=== PATIENT | male | born 1995 | race Caucasian/White ===

== ENCOUNTER 2024-08-26 13:27 | Emergency (ER) | payer BC ==
[2024-08-26 14:08] LABS: Absolute Basophils 0.1 K/uL (0-0.5); Absolute Eosinophils 0.7 K/uL (0-0.5); Absolute Lymphocytes (CBC) 2.2 K/uL (0.7-4.9); Absolute Monocytes 0.5 K/uL (0.1-1.3); Absolute Neutrophil 4.8 K/uL (1.8-8.0); Basophils % 0.7 % (0-1.3); Eosinophils % 8.3 % (0-4.4); Hematocrit 42.6 % (39.6-49.0); Hemoglobin 14.8 g/dL (13.6-17.9); MCH 29.9 pg (27.0-35.0); MCHC 34.7 g/dL (32.0-36.0); MCV 86.2 fL (80-100); MPV 9.6 fL (7.6-11.3); Monocytes % 6.5 % (3.3-12.3); Neutrophils % 58.5 % (41.7-73.7); Nucleated Red Blood Cells % 0.1 % (0-0); Platelets 223 thou/uL (152-406); RBC Red Blood Cell Count 4.94 M/uL (4.33-5.43); Red Cell Distribution Width 12.8 % (12.1-15.2)
[2024-08-26 14:11] LABS: D-Dimer 0.288 FEUug/mL (0-0.500); PT Prothrombin Time 11.6 SECONDS (9.4-12.5); Protime INR 1.04
[2024-08-26 14:27] LABS: ALT/SGPT 46 U/L (16-61); AST/SGOT 22 U/L (15-37); Albumin 3.8 g/dL (3.4-5.0); Albumin/Globulin Ratio 1.1 (1.1-1.8); Alkaline Phosphatase 96 U/L (45-117); Anion Gap 7.5 mEq/L (5.0-15.0); BUN Blood Urea Nitrogen 11 mg/dL (7-18); Bicarbonate 24 mEq/L (21-32); Bilirubin Direct < 0.2 mg/dL (0-0.2); Bilirubin Indirect, Calculated 0.3 mg/dL (0.2-0.8); Bilirubin Total 0.5 mg/dL (0.2-1.0); Globulin 3.6 g/dL (2.3-3.5); Glomerular Filtration Rate 110 ml/min (=/>90); Glucose Level 109 mg/dL (74-106); Lipase 21 U/L (13-75); Magnesium 1.7 mg/dL (1.6-2.4); Potassium 3.5 mEq/L (3.5-5.1); Protein, Total 7.4 g/dL (6.4-8.2); Sodium Level 139 mEq/L (136-145); Troponin High Sensitivity 3.3 pg/mL (<58.9)
--- NOTE | 2024-08-26 14:32 | RAD REPORT ---
EXAMINATION: ONE VIEW CHEST XR CLINICAL INDICATION: Male, 28 years old.CHEST PAIN TECHNIQUE: 1 View, AP supine, X-ray of the chest was performed. [id number]. COMPARISON: No prior exam. FINDINGS: Lungs and pleura: Clear lungs. No effusion. Heart and mediastinum: Normal heart size. Unremarkable mediastinal contours. Osseous structures: No acute abnormality. Tubes/lines: None Other: None. IMPRESSION: No acute intrathoracic abnormality.
--- NOTE | 2024-08-26 16:04 | RAD REPORT ---
Abdomen Exam Limited: 08/26/2024 3:54 PM CLINICAL HISTORY: chest pain STUDY: Limited right upper quadrant ultrasound of abdomen. COMPARISON: None. FINDINGS: Liver: No significant abnormality. Bile ducts: No intrahepatic or extrahepatic biliary dilatation. Common bile duct measures 3 mm. Gallbladder: Normal. IMPRESSION: Unremarkable exam.
[2024-08-26] MEDS ORDERED: KETOROLAC 30 MG/ML INJ ONE (16:48)
--- NOTE | 2024-08-26 17:33 | EDPHYS ---
[facility] Name: Kam Rosenberg Age: 28 yrs Sex: Male : 1995 Arrival Date: 08/26/2024 Time: 13:27 Bed 15 Private MD: ED Physician Lasha Beltran HPI: 08/26 13:40 This 28 yrs old Male presents to ER via Ambulatory with complaints of Chest Pain. cp 13:40 The patient or guardian reports chest pain that is located primarily in the anterior cp chest wall, left. 13:40 The pain radiates to left back. cp 13:40 The chest pain is described as sharp. Duration: The patient or guardian reports a cp single episode, that is still ongoing, onset about 1 hr prior to arrival. pain started while at work. Historical: - Allergies: 13:36 No Known Allergies; aa5 - Home Meds: 13:36 None [Active]; aa5 - PMHx: 13:36 None; aa5 - PSHx: 13:36 None; aa5 - Immunization history:: Adult Immunizations up to date. - Infectious Disease History:: Denies. - Social history:: Smoking status: Reported history of juuling and/or vaping. ROS: 13:45 Constitutional: Negative for body aches, chills, fever, poor PO intake, cp 13:45 Eyes: Negative for injury, pain, redness, and discharge, cp 13:45 ENT: Negative for drainage from ear(s), ear pain, sore throat, difficulty swallowing, difficulty handling secretions, 13:45 Cardiovascular: Positive for chest pain, of the left side of chest, Negative for edema, palpitations, 13:45 Respiratory: Negative for cough, shortness of breath, wheezing, 13:45 Abdomen/GI: Negative for vomiting, diarrhea, constipation, 13:45 Back: Positive for radiated pain, 13:45 Neuro: Negative for altered mental status, dizziness, headache, weakness, 13:45 All other systems are negative, Exam: 13:49 ECG was reviewed by the Attending Physician. cp 13:50 Constitutional: The patient appears in no acute distress, alert, awake, cp non-diaphoretic, non-toxic, well developed, well nourished, uncomfortable, 13:50 Head/Face: Normocephalic, atraumatic. cp 13:50 Eyes: Periorbital structures: appear normal, Conjunctiva: normal, no exudate, no injection, Sclera: no appreciated abnormality, Lids and lashes: appear normal, bilaterally, 13:50 ENT: External ear(s): are unremarkable, Nose: is normal, Mouth: Lips: moist, Oral mucosa: pink and intact, moist, Posterior pharynx: Airway: no evidence of obstruction, patent, 13:50 Neck: ROM/movement: is normal, is supple, without pain, no range of motions limitations, 13:50 Chest/axilla: Inspection: normal, 13:50 Cardiovascular: Rate: normal, Rhythm: regular, Edema: is not appreciated, JVD: is not appreciated, 13:50 Respiratory: the patient does not display signs of respiratory distress, Respirations: normal, no use of accessory muscles, no retractions, labored breathing, is not present, Breath sounds: are clear throughout, no decreased breath sounds, no stridor, no wheezing, 13:50 Abdomen/GI: Inspection: abdomen appears normal, Palpation: abdomen is soft and non-tender, in all quadrants, 13:50 Back: CVA tenderness, is absent, 13:50 Neuro: Orientation: to person, place \T\ time. Mentation: is normal, Motor: moves all fours, strength is normal, 16:47 ECG was reviewed by the Attending Physician. cp Vital Signs: 13:36 BP 129 / 88; Pulse 65; Resp 18 S; Temp 98(TE); Pulse Ox 98% on R/A; aa5 13:55 BP 138 / 84 RA Supine (auto/reg); Pulse 66; ko1 13:57 BP 131 / 78 LA Supine (auto/reg); Pulse 68; ko1 16:56 BP 113 / 79; Pulse 67; Resp 17; Pulse Ox 100% ; ko1 17:30 BP 124 / 72; Pulse 68; Resp 16; Pulse Ox 100% ; ko1 MDM: 13:32 Medical Screening Exam initiated cp 15:00 Differential diagnosis: acute myocardial infarction, acute pericarditis, cholecystitis, cp Cholelithiasis costochondritis, pancreatitis, pleurisy, pneumonia, pneumothorax, pulmonary embolus, stable angina, thoracic aortic disection, unstable angina. 17:31 Data reviewed: vital signs, nurses notes, lab test result(s), EKG, radiologic studies, cp plain films, ultrasound, and as a result, I will discharge patient. 17:31 I considered the following discharge prescriptions or medication management in the emergency department Medications were administered in the Emergency Department. See MAR. Independent interpretation of the following test(s) in the Emergency Department EKG: See my EKG interpretation above. Counseling: I had a detailed discussion with the patient and/or guardian regarding the historical points, exam findings, and any diagnostic results supporting the discharge/admit diagnosis, lab results, radiology results, the need for outpatient follow up, a lab scientist, a family practitioner, to return to the emergency department if symptoms worsen or persist or if there are any questions or concerns that arise at home. Response to treatment: the patient's symptoms have mildly improved after treatment, and as a result, I will discharge patient. Special discussion: Based on the patient's history, exam, and Dx evaluation, there is no indication for emergent intervention or inpatient Tx. It is understood by the patient/guardian that if the Sx's persist or worsen they need to return immediately for re-evaluation. 08/26 13:37 Order name: Basic Metabolic Panel; Complete Time: 14:28 08/26 14:28 Interpretation: Normal except: CL 111; GLUC 109. 08/26 13:37 Order name: CBC with Diff; Complete Time: 14:28 08/26 14:28 Interpretation: Normal except: EOSINOPHIL % 8.3; EOSA 0.7. 08/26 13:37 Order name: D-Dimer; Complete Time: 14:28 08/26 17:26 Interpretation: Reviewed. 08/26 13:37 Order name: LFT's; Complete Time: 14:28 08/26 17:26 Interpretation: Reviewed. 08/26 13:37 Order name: Magnesium; Complete Time: 14:28 08/26 17:26 Interpretation: Reviewed. 08/26 13:37 Order name: PT-INR; Complete Time: 14:28 08/26 17:27 Interpretation: Reviewed. 08/26 13:37 Order name: Troponin HS; Complete Time: 14:28 08/26 14:29 Interpretation: Reviewed. 08/26 13:37 Order name: Lipase; Complete Time: 14:28 08/26 17:27 Interpretation: Reviewed. 08/26 16:27 Order name: Troponin HS; Complete Time: 17:23 08/26 17:23 Interpretation: Reviewed. 08/26 13:37 Order name: XRAY Chest (1 view); Complete Time: 14:43 08/26 17:23 Interpretation: Report review. 08/26 14:50 Order name: US Abdomen Limited: gallbladder; Complete Time: 16:07 08/26 17:27 Interpretation: Report reviewed. 08/26 13:37 Order name: Cardiac monitoring; Complete Time: 13:46 08/26 13:37 Order name: EKG - Nurse/Tech; Complete Time: 13:47 08/26 13:37 Order name: IV Saline Lock; Complete Time: 14:02 08/26 13:37 Order name: Labs collected and sent; Complete Time: 14:02 08/26 13:37 Order name: O2 Per Protocol; Complete Time: 13:47 08/26 13:37 Order name: O2 Sat Monitoring; Complete Time: 13:47 08/26 13:37 Order name: Blood Pressure Recheck: bilateral upper extremity; Complete Time: 13:58 08/26 14:50 Order name: NPO; Complete Time: 15:06 08/26 16:27 Order name: EKG - Nurse/Tech; Complete Time: 16:39 cp EC:49 Rate is 68 beats/min. Rhythm is regular. OK interval is normal. QRS interval is normal. cp QT interval is normal. T waves are Inverted in lead aVR. Interpreted by me. Reviewed by me. 16:47 Rate is 75 beats/min. Rhythm is regular. OK interval is normal. QRS interval is normal. cp QT interval is normal. T waves are Inverted in leads III, aVR. Interpreted by me. Reviewed by me. Administered Medications: 14:42 Drug: NS 0.9% IV 1000 ml IV at 1000 ml once; to be given as a bolus over 60 minutes ko1 Route: IV; Rate: 1000 ml; Site: right antecubital; 15:06 Follow up: Response: No adverse reaction; IV Status: Completed infusion; IV Intake: ko1 1000ml 14:42 Drug: Pantoprazole IVP 40 mg IVP once Route: IVP; Site: right antecubital; ko1 14:57 Follow up: Response: No adverse reaction ko1 14:43 Drug: Ondansetron IVP 4 mg IVP once; over 2 minutes Route: IVP; Site: right antecubital;ko1 14:58 Follow up: Response: No adverse reaction ko1 14:45 Drug: morphine IVP or IV 4 mg IVP once over 4 mins Route: IVP; Infused Over: 4 mins; ko1 Site: right antecubital; 15:00 Follow up: Response: No adverse reaction; Pain is decreased ko1 16:50 Drug: Ketorolac IVP 15 mg IVP once Route: IVP; Site: right antecubital; ko1 17:05 Follow up: Response: No adverse reaction ko1 Disposition Summary: 08/26/24 17:32 Discharge Ordered Notes: Location: Home cp Problem: new cp Symptoms: have improved cp Condition: Stable cp Diagnosis - Chest pain, unspecified cp Followup: cp - With: Christaino Montero MD - When: 5 - 6 days - Reason: chest pain Discharge Instructions: - Nonspecific Chest Pain, Adult cp - Aspirin and Your Heart cp - Discharge Summary Sheet ko1 Forms: - Medication Reconciliation Form cp - Antibiotic Education cp - Prescription Opioid Use cp - Patient Portal Instructions cp - Leadership Thank You Letter cp - Work release form ko1 Prescriptions: - Protonix 40 mg Oral Tablet - take 1 tablet ORAL route once daily; 30 tablet; Refills: 0, Product Selection cp Permitted Signatures: Dispatcher [employer] EDTyra Crowe RN RN aa5 Rupesh Fernandez PA PA cp Elicia Mtz RN RN ko1 Corrections: (The following items were deleted from the chart) 13:38 13:38 BASIC METABOLIC PANEL+C.LAB.BRZ ordered. EDMS EDMS 13:38 13:38 CBC+H.LAB.BRZ ordered. EDMS EDMS 13:38 13:38 D-DIMER+COAG.LAB.BRZ ordered. EDMS EDMS 13:38 13:38 HEPATIC FUNCTION+C.LAB.BRZ ordered. EDMS EDMS 13:38 13:38 MAGNESIUM+C.LAB.BRZ ordered. EDMS EDMS 13:38 13:38 PROTIME (+INR)+COAG.LAB.BRZ ordered. EDMS EDMS 13:38 13:38 Troponin High Sensitivity+C.LAB.BRZ ordered. EDMS EDMS 13:38 13:38 LIPASE+C.LAB.BRZ ordered. EDMS EDMS 13:38 Chest Single View+RAD.RAD.BRZ ordered. EDMS EDMS 08/27 17:25 08/26 13:40 Duration: The patient or guardian reports a single episode, that is still cp ongoing, onset about 1 hr prior to arrival while at work, cp
--- NOTE | 2024-08-26 17:33 | ER ---
Nurse's Notes [facility] Name: Kam Rosenberg Age: 28 yrs Sex: Male : 1995 Arrival Date: 08/26/2024 Time: 13:27 Bed 15 Private MD: Diagnosis: Chest pain, unspecified Presentation: 08/26 13:36 Chief complaint: Chief complaint: Patient states: chest pain and LUQ pain radiating aa5 around to back that began 2 months ago but has been constant since 1 hr [employer]MENT[employer] TE[employer]ER. 13:36 Coronavirus screen: At this time, the client does not indicate any symptoms associated aa5 with coronavirus-19. Ebola Screen: Patient denies travel to an Ebola-affected area in the 21 days before illness onset. Initial Sepsis Screen: Does the patient meet any 2 criteria? No. Patient's initial sepsis screen is negative. Does the patient have a suspected source of infection? No. Patient's initial sepsis screen is negative. Risk Assessment: Do you want to hurt yourself or someone else? Patient reports no desire to harm self or others. Onset of symptoms was August 26, 2024. 13:36 Acuity: DAVON 3 aa5 13:36 Method Of Arrival: Ambulatory aa5 Historical: - Allergies: 13:36 No Known Allergies; aa5 - Home Meds: 13:36 None [Active]; aa5 - PMHx: 13:36 None; aa5 - PSHx: 13:36 None; aa5 - Immunization history:: Adult Immunizations up to date. - Infectious Disease History:: Denies. - Social history:: Smoking status: Reported history of juuling and/or vaping. Screenin:45 [facility] ED Fall Risk Assessment (Adult) History of falling in the last 3 months, ko1 including since admission No falls in past 3 months (0 pts) Confusion or Disorientation No (0 pts) Intoxicated or Sedated No (0 pts) Impaired Gait No (0 pts) Mobility Assist Device Used No (0 pt) Altered Elimination No (0 pt) Score/Fall Risk Level 0 - 2 = Low Risk Oriented to surroundings, Maintained a safe environment, Educated pt \T\ family on fall prevention, incl call for assistance when getting out of bed, Assessed \T\ reinforced patient's understanding of fall precautions, Hourly rounding (assess needs \T\ fall precautionary measures) done. Abuse screen: Denies threats or abuse. Denies injuries from another. Nutritional screening: No deficits noted. Tuberculosis screening: No symptoms or risk factors identified. Assessment: 13:45 General: Appears distressed, Behavior is cooperative, appropriate for age, restless. ko1 Pain: Complains of pain in diaphragm Pain does not radiate. Pain began suddenly. Neuro: No deficits noted. Cardiovascular: Reports chest pain. Respiratory: No deficits noted. GI: No deficits noted. : No deficits noted. EENT: No deficits noted. Derm: No deficits noted. Musculoskeletal: No deficits noted. Vital Signs: 13:36 BP 129 / 88; Pulse 65; Resp 18 S; Temp 98(TE); Pulse Ox 98% on R/A; aa5 13:55 BP 138 / 84 RA Supine (auto/reg); Pulse 66; ko1 13:57 BP 131 / 78 LA Supine (auto/reg); Pulse 68; ko1 16:56 BP 113 / 79; Pulse 67; Resp 17; Pulse Ox 100% ; ko1 17:30 BP 124 / 72; Pulse 68; Resp 16; Pulse Ox 100% ; ko1 ED Course: 13:29 Patient arrived in ED. im 13:32 Rupesh Fernandez PA is PHCP. cp 13:32 Lasha Beltran MD is Attending Physician. cp 13:36 Arm band placed on. aa5 13:41 EKG completed in triage. Results shown to MD. aa5 13:46 Elicia Mtz, RN is Primary Nurse. ko1 13:49 Triage completed. aa5 14:00 Patient has correct armband on for positive identification. Placed in gown. Bed in low ko1 position. Call light in reach. Side rails up X 1. Provided Education on: labs. Client placed on continuous cardiac and pulse oximetry monitoring. NIBP monitoring applied. laboratory monitor on. Door closed. Noise minimized. Lights dimmed. Warm blanket given. Pillow given. 14:00 No provider procedures requiring assistance completed. Initial lab(s) drawn, by ramón lezama sent to lab. EKG done, by ED staff, reviewed by Rupesh ALEJANDRA. Inserted saline lock: 18 gauge in right antecubital area, using aseptic technique. Blood collected. Flushed with 10 mL NS. Patient maintains SpO2 saturation greater than 95% on room air. 14:02 Lipase Sent. ko1 14:02 Basic Metabolic Panel Sent. ko1 14:02 CBC with Diff Sent. ko1 14:02 D-Dimer Sent. ko1 14:02 LFT's Sent. ko1 14:02 Magnesium Sent. ko1 14:02 PT-INR Sent. ko1 14:02 Troponin HS Sent. ko1 14:30 XRAY Chest (1 view) In Process Unspecified. EDMS 15:56 US Abdomen Limited: gallbladder In Process Unspecified. EDMS 16:39 Troponin HS Sent. ko1 16:44 Repeat lab(s) drawn. by me, sent to lab. EKG done, by ED staff, reviewed by Rupesh fernández1 PA. 17:30 IV discontinued, intact, bleeding controlled, No redness/swelling at site. Pressure ko1 dressing applied. 17:31 Christiano Montero MD is Referral Physician. cp Administered Medications: 14:42 Drug: NS 0.9% IV 1000 ml IV at 1000 ml once; to be given as a bolus over 60 minutes ko1 Route: IV; Rate: 1000 ml; Site: right antecubital; 15:06 Follow up: Response: No adverse reaction; IV Status: Completed infusion; IV Intake: ko1 1000ml 14:42 Drug: Pantoprazole IVP 40 mg IVP once Route: IVP; Site: right antecubital; ko1 14:57 Follow up: Response: No adverse reaction ko1 14:43 Drug: Ondansetron IVP 4 mg IVP once; over 2 minutes Route: IVP; Site: right antecubital;ko1 14:58 Follow up: Response: No adverse reaction ko1 14:45 Drug: morphine IVP or IV 4 mg IVP once over 4 mins Route: IVP; Infused Over: 4 mins; ko1 Site: right antecubital; 15:00 Follow up: Response: No adverse reaction; Pain is decreased ko1 16:50 Drug: Ketorolac IVP 15 mg IVP once Route: IVP; Site: right antecubital; ko1 17:05 Follow up: Response: No adverse reaction ko1 Medication: 13:45 VIS not applicable for this client. ko1 Intake: 15:06 IV: 1000ml; Total: 1000ml. ko1 Outcome: 17:32 Discharge ordered by . cp 17:49 Discharged to home ambulatory, with family, ko1 17:49 Condition: stable 17:49 Discharge instructions given to patient, family, Instructed on discharge instructions, follow up and referral plans. medication usage, Demonstrated understanding of instructions, follow-up care, medications, Prescriptions given X 1, 17:54 Patient left the ED. ko1 Signatures: Dispatcher [employer] EDMS Tyra Schmidt RN RN aa5 Rupesh Fernandez PA PA cp Oliver, Kathy, RN RN ko1 Claire Monteiro Corrections: (The following items were deleted from the chart) 13:49 13:40 Chief complaint: aa5 aa5 13:59 13:55 BP 138 / 84 Supine Auto R Arm Regular; ko1 ko1
[2024-08-26 18:23] VITALS: TEMP 98
[2024-08-26 18:48] VITALS: BP 124/72; O2SAT 100
--- NOTE | 2024-08-29 12:20 | EKG ---
Test Date: 2024-08-26 Test Time: 13:41:47 Lead Care Manager: FANG MEASUREMENT RESULTS: Intervals: Rate: 68 ID: [id number] QRSD: 88 QT: 366 QTc: 389 [place]: P: 26 ID: [id number] QRS: 67 T: 33 INTERPRETIVE STATEMENTS: Normal sinus rhythm with sinus arrhythmia Normal ECG No previous ECG available for comparison Electronically Signed On 08-29-24 12:16:19 SPINNER FIXER by Chava Horowitz
== END 2024-08-26 17:54 | disposition home or self-care (01) ==
LOC: ER 13:27 → EDBD 13:27 → ER 17:54
DX: R07.89 Other chest pain (principal)
CPT/HCPCS: 36415; 71045; 76705; 80048; 80076; 83690; 83735; 84484; 85025; 85379; 85610; 93005; 96374; 96375; 99285